=== PATIENT | female | born 1995 | race American Indian/Alaskan Native ===

== ENCOUNTER 2017-10-15 03:20 | Emergency (ER) | payer OTHER ==
[~2017-10-15] VITALS: Ht 165.1 cm; Wt 975.2 kg
[~2017-10-15 03:20] MED LIST: ALBU90OI INH; ALBU90OI6 INH; ALPR1 PO; ARTHRITIS PAIN650 MG PO; AZIT250 PO; BIRTH CONTROL; BUDE6HFA; BUSP10 PO; BUSP5 PO; Bactrim Ds Tab1 EACH PO; CEPH500 PO; CLON.5 PO; Clonazepam0.5 MG PO; IBUP600 PO; IBUP800 PO; Junel Fe 1.5-31 EACH PO; LEVO750 PO; LORA10ER PO; MAGIC MOUTHWASH; MONT10T PO; NAPR220 PO; Norco 10-325 T1 EACH PO; Norco 5-325 Ta1 EACH PO; PRED10 PO; PRED20 PO; PROCODE120 PO; Prednisone20 MG PO; SULTRIDS PO; TRAM50 PO; TRAZ50 PO; Ventolin5 MG/1 ML INH; Zithromax250 MG PO
[2017-10-15] MEDS ORDERED: PROP10 PO (03:34)
== END 2017-10-15 04:28 | disposition home or self-care (01) ==
LOC: ER 03:20
DX: F41.8 Other specified anxiety disorders (principal); J45.909 Unspecified asthma, uncomplicated; F32.9 Major depressive disorder, single episode, unspecified; Z79.899 Other long term (current) drug therapy; Z87.891 Personal history of nicotine dependence
CPT/HCPCS: 96374; 96375; 99283; J1200; J1630

== ENCOUNTER 2017-10-24 22:43 | Inpatient (IN) | payer OTHER ==
[~2017-10-24] VITALS: Ht 162.6 cm; Wt 135.7 kg
[~2017-10-24 22:43] MED LIST changes: +PROP10 PO
[2017-10-25 00:11] LABS: BASOPHILS ABSOLUTE AUTO 0.07 K/mm3 (0.00-0.23); BASOPHILS PERCENT AUTO 1 % (0-2); EOSINOPHILS ABSOLUTE AUTO 0.56 K/mm3 (0.00-0.68); EOSINOPHILS PERCENT AUTO 7 % (0-6); Hematocrit 43.1 % (33.0-51.0); Hemoglobin 13.8 g/dL (11.5-16.0); IMMATURE GRAN ABSOLUTE AUTO 0.02 K/mm3 (0.00-0.10); IMMATURE GRAN PERCENT AUTO 0 % (0-1); LYMPHOCYTES ABSOLUTE AUTO 2.64 K/mm3 (0.84-5.20); LYMPHOCYTES PERCENT AUTO 35 % (21-46); MONOCYTES ABSOLUTE AUTO 0.53 K/mm3 (0.16-1.47); MONOCYTES PERCENT AUTO 7 % (4-13); Mean Corpuscular HGB 29.9 pg (26.0-34.0); Mean Corpuscular Volume 93 fL (80-100); Mean Platelet Volume 10.7 fL (9.1-12.4); NEUTROPHILS ABSOLUTE AUTO 3.71 K/mm3 (1.96-9.15); NEUTROPHILS PERCENT AUTO 49 % (41-73); Platelet Count 310 K/mm3 (150-400); RDW Coefficient Variation 12.1 % (11.7-14.2); RDW Standard Deviation 41.8 fL (35.1-46.3); Red Blood Cell Count 4.62 M/mm3 (3.80-5.20); White Blood Cell Count 7.53 K/mm3 (4.00-11.30)
[2017-10-25 00:12] LABS: Source, Urine Clean Catch
[2017-10-25 00:19] LABS: Bilirubin, Urine Neg (Neg); Blood, Urine Neg (Neg); Glucose Qualitative, Urine Neg (Neg); Ketones, Urine Neg (Neg); Leukocyte Esterase, Urine Neg (Neg); Nitrite, Urine Neg (Neg); Protein, Urine Neg (Neg); Urobilinogen, Urine NORM (Normal)
[2017-10-25 00:25] LABS: Appearance, Urine Clear (Clear); Color, Urine Pale Yellow (P-Yellow)
[2017-10-25 00:31] LABS: U Amphetamine Screen Not Detected; U Barbituate Screen DETECTED; U Benzodiazapine Screen DETECTED; U Methamphetamine Screen Not Detected
[2017-10-25 00:32] LABS: Acetaminophen, Random 28.5 ug/mL (10.0-30.0); Alanine Aminotransfer (ALT/SGP 132 U/L (12-78); Albumin, Blood 3.6 g/dL (3.4-5.0); Alk Phos 71 U/L (50-136); Anion Gap 8 mmol/L (6-16); Aspartate Aminotrans (AST/SGOT 88 U/L (12-37); Bilirubin, Total 0.4 mg/dL (0.1-1.0); Blood Urea Nitrogen 9 mg/dL (8-24); Bun/Creatinine Ratio 13.1 (12.0-20.0); CO2, Blood 25 mmol/L (21-32); Calcium, Blood 8.3 mg/dL (8.5-10.1); Chloride, Blood 106 mmol/L (98-108); Creatinine, Blood 0.69 mg/dL (0.40-1.00); Ethanol (Alcohol), Blood, Med <3 mg/dL; Globulin, Blood 3.7 g/dL (2.2-4.0); Glomerular Filtration Rate >60 (60-); Glucose, Blood 97 mg/dL (70-99); Potassium, Blood 4.2 mmol/L (3.5-5.5); Salicylate <1.7 mg/dL (2.8-20.0); Sodium, Blood 139 mmol/L (136-145); Total Protein, Blood 7.3 g/dL (6.4-8.2)
[2017-10-25 00:32] LABS: U Buprenorphine Screen Not Detected; U Cannabinoids Screen DETECTED; U Cocaine Screen Not Detected; U Methadone Screen Not Detected; U Opiates Screen Not Detected; U Oxycodone Screen Not Detected; U Phencyclidine Screen Not Detected; U Propoxyphene Screen Not Detected
[2017-10-25 02:10] LABS: International Normalized Ratio 1.17; Prothrombin Time Results 12.2 Sec (9.7-11.5)
[2017-10-25] MEDS ORDERED: IBUP800 PO (03:28)
[2017-10-25 18:49] LABS: Alanine Aminotransfer (ALT/SGP 113 U/L (12-78); Albumin, Blood 3.3 g/dL (3.4-5.0); Alk Phos 60 U/L (50-136); Anion Gap 11 mmol/L (6-16); Aspartate Aminotrans (AST/SGOT 60 U/L (12-37); Bilirubin, Total 0.5 mg/dL (0.1-1.0); Blood Urea Nitrogen 7 mg/dL (8-24); Bun/Creatinine Ratio 11.7 (12.0-20.0); CO2, Blood 19 mmol/L (21-32); Calcium, Blood 8.4 mg/dL (8.5-10.1); Chloride, Blood 111 mmol/L (98-108); Globulin, Blood 3.4 g/dL (2.2-4.0); Glomerular Filtration Rate >60 (60-); Glucose, Blood 107 mg/dL (70-99); Potassium, Blood 4.3 mmol/L (3.5-5.5); Sodium, Blood 141 mmol/L (136-145); Total Protein, Blood 6.7 g/dL (6.4-8.2)
[2017-10-25 23:49] LABS: International Normalized Ratio 1.07; Prothrombin Time Results 11.1 Sec (9.7-11.5)
[2017-10-26 00:19] LABS: Alanine Aminotransfer (ALT/SGP 101 U/L (12-78); Aspartate Aminotrans (AST/SGOT 47 U/L (12-37)
[2017-10-26 00:20] LABS: Acetaminophen, Random <2.0 ug/mL (10.0-30.0)
[2017-10-26 09:21] LABS: Alanine Aminotransfer (ALT/SGP 106 U/L (12-78); Albumin/Globulin Ratio 0.9 (0.8-1.8); Alk Phos 58 U/L (50-136); Anion Gap 7 mmol/L (6-16); Aspartate Aminotrans (AST/SGOT 61 U/L (12-37); Bilirubin, Total 0.5 mg/dL (0.1-1.0); Blood Urea Nitrogen 8 mg/dL (8-24); Bun/Creatinine Ratio 12.4 (12.0-20.0); CO2, Blood 22 mmol/L (21-32); Calcium, Blood 7.9 mg/dL (8.5-10.1); Chloride, Blood 112 mmol/L (98-108); Creatinine, Blood 0.64 mg/dL (0.40-1.00); Globulin, Blood 3.3 g/dL (2.2-4.0); Glomerular Filtration Rate >60 (60-); Glucose, Blood 94 mg/dL (70-99); Potassium, Blood 4.1 mmol/L (3.5-5.5); Sodium, Blood 141 mmol/L (136-145); Total Protein, Blood 6.3 g/dL (6.4-8.2)
[2017-10-26] MEDS ORDERED: LORA1 PO (09:57)
== END 2017-10-26 10:41 | disposition home or self-care (01) | DRG 918 ==
LOC: ER 22:43 → ICUW 22:44
PROVIDERS: Emergency Medicine; Family Medicine; Internal Medicine
DX: T39.1X2A Poisoning by 4-Aminophenol derivatives, intentional self-harm, initial encounter (principal); I47.1 Supraventricular tachycardia; E66.9 Obesity, unspecified; F32.9 Major depressive disorder, single episode, unspecified; F41.9 Anxiety disorder, unspecified; J45.909 Unspecified asthma, uncomplicated; Z87.891 Personal history of nicotine dependence
CPT/HCPCS: 36415; 76705; 80053; 81003; 81025; 83735; 84436; 84443; 84450; 84460; 85025; 85610; 93005; 93010; 94640; 96365; 96375; 99291; 99292; G0480; J0132; J2405; J7030; J7060; J7070

== ENCOUNTER 2018-09-12 22:05 | Emergency (ER) | payer OTHER ==
[~2018-09-12] VITALS: Ht 162.6 cm; Wt 127.0 kg
[~2018-09-12 22:05] MED LIST changes: +LORA1 PO
[2018-09-12] MEDS ORDERED: PROP10 (22:17)
[2018-09-12] MEDS ORDERED: CLON1 PO (22:17)
== END 2018-09-12 23:49 | disposition home or self-care (01) ==
LOC: ER 22:05
DX: S90.212A Contusion of left great toe with damage to nail, initial encounter (principal); W22.8XXA Striking against or struck by other objects, initial encounter; Z88.6 Allergy status to analgesic agent; Z79.899 Other long term (current) drug therapy; F32.9 Major depressive disorder, single episode, unspecified; F43.10 Post-traumatic stress disorder, unspecified; J45.909 Unspecified asthma, uncomplicated; Z87.891 Personal history of nicotine dependence
CPT/HCPCS: 11740; 99283-25

== ENCOUNTER 2019-05-17 03:19 | Observation (INO) | payer OTHER ==
[~2019-05-17] VITALS: Ht 167.6 cm; Wt 124.7 kg
[~2019-05-17 03:19] MED LIST changes: +CLON1 PO; +Roxicodone5 MG PO
[2019-05-17 03:52] LABS: BASOPHILS ABSOLUTE AUTO 0.05 K/mm3 (0.00-0.23); BASOPHILS PERCENT AUTO 1 % (0-2); EOSINOPHILS ABSOLUTE AUTO 0.32 K/mm3 (0.00-0.68); EOSINOPHILS PERCENT AUTO 3 % (0-6); Hematocrit 42.8 % (33.0-51.0); Hemoglobin 13.7 g/dL (11.5-16.0); IMMATURE GRAN ABSOLUTE AUTO 0.05 K/mm3 (0.00-0.10); IMMATURE GRAN PERCENT AUTO 1 % (0-1); LYMPHOCYTES ABSOLUTE AUTO 2.13 K/mm3 (0.84-5.20); LYMPHOCYTES PERCENT AUTO 20 % (21-46); MONOCYTES ABSOLUTE AUTO 0.63 K/mm3 (0.16-1.47); MONOCYTES PERCENT AUTO 6 % (4-13); Mean Corpuscular HGB 30.1 pg (26.0-34.0); Mean Corpuscular Volume 94 fL (80-100); Mean Platelet Volume 10.6 fL (9.1-12.4); NEUTROPHILS ABSOLUTE AUTO 7.41 K/mm3 (1.96-9.15); NEUTROPHILS PERCENT AUTO 70 % (41-73); Platelet Count 356 K/mm3 (150-400); RDW Coefficient Variation 13.2 % (11.7-14.2); RDW Standard Deviation 45.1 fL (35.1-46.3); Red Blood Cell Count 4.55 M/mm3 (3.80-5.20); White Blood Cell Count 10.59 K/mm3 (4.00-11.30)
[2019-05-17 04:15] LABS: Alanine Aminotransfer (ALT/SGP 63 U/L (12-78); Albumin, Blood 3.8 g/dL (3.4-5.0); Albumin/Globulin Ratio 1.1 (0.8-1.8); Alk Phos 69 U/L (50-136); Anion Gap 8 mmol/L (6-16); Aspartate Aminotrans (AST/SGOT 35 U/L (12-37); Bilirubin, Total 0.2 mg/dL (0.1-1.0); Blood Urea Nitrogen 12 mg/dL (8-24); Bun/Creatinine Ratio 17.2 (12.0-20.0); CO2, Blood 24 mmol/L (21-32); Calcium, Blood 8.2 mg/dL (8.5-10.1); Chloride, Blood 110 mmol/L (98-108); Ethanol (Alcohol), Blood, Med 40 mg/dL; Globulin, Blood 3.5 g/dL (2.2-4.0); Glomerular Filtration Rate >60 (60-); Glucose, Blood 108 mg/dL (70-99); Potassium, Blood 4.2 mmol/L (3.5-5.5); Salicylate <1.7 mg/dL (2.8-20.0); Sodium, Blood 142 mmol/L (136-145); Total Protein, Blood 7.3 g/dL (6.4-8.2)
[2019-05-17 04:25] LABS: Acetaminophen, Random 112.6 ug/mL (10.0-30.0)
[2019-05-17] MEDS ORDERED: PROP10 (04:30)
[2019-05-17 06:53] LABS: Source, Urine Clean Catch
[2019-05-17 06:59] LABS: Bilirubin, Urine Neg (Neg); Blood, Urine Neg (Neg); Glucose Qualitative, Urine Neg (Neg); Ketones, Urine 1+ (Neg); Leukocyte Esterase, Urine Neg (Neg); Nitrite, Urine Neg (Neg); Protein, Urine Neg (Neg); Specific Gravity, Urine 1.015 (1.003-1.022); Urobilinogen, Urine NORM (Normal); pH, Urine 6.5 (5.0-8.0)
[2019-05-17 07:16] LABS: Appearance, Urine Clear (Clear); Color, Urine Yellow (P-Yellow)
[2019-05-17 07:22] LABS: U Amphetamine Screen Not Detected; U Barbituate Screen Not Detected; U Benzodiazapine Screen Not Detected; U Buprenorphine Screen Not Detected; U Cannabinoids Screen DETECTED; U Cocaine Screen Not Detected; U Methadone Screen Not Detected; U Methamphetamine Screen Not Detected; U Opiates Screen Not Detected; U Oxycodone Screen Not Detected; U Phencyclidine Screen Not Detected; U Propoxyphene Screen Not Detected
== END 2019-05-17 22:34 | disposition home or self-care (01) ==
LOC: ER 03:19 → EOR 03:20
PROVIDERS: Emergency Medicine; ADMIT Emergency Medicine
DX: T39.1X2A Poisoning by 4-Aminophenol derivatives, intentional self-harm, initial encounter (principal); F32.9 Major depressive disorder, single episode, unspecified; F41.9 Anxiety disorder, unspecified; F43.10 Post-traumatic stress disorder, unspecified; J45.909 Unspecified asthma, uncomplicated; Z88.6 Allergy status to analgesic agent; Z79.899 Other long term (current) drug therapy; Z79.51 Long term (current) use of inhaled steroids
CPT/HCPCS: 36415; 80053; 81003; 81025; 84443; 85025; 96374; 96376; 99285-25; G0378; G0480; J2405; Q3014

== ENCOUNTER 2019-06-20 03:39 | Emergency (ER) | payer OTHER ==
[~2019-06-20] VITALS: Ht 162.6 cm; Wt 122.5 kg
[~2019-06-20 03:39] MED LIST changes: +PROP10
[2019-06-20] MEDS ORDERED: Norco 5-325 Ta1 EACH PO (05:42)
[2019-06-20] MEDS ORDERED: Ventolin/Prove6.7 GM (14:58)
[2019-06-20] MEDS ORDERED: Zoloft100 MG PO ×2 (15:19)
[2019-06-20] MEDS ORDERED: Ativan1 MG PO ×2 (15:19)
[2019-06-20] MEDS ORDERED: Seroquel Xr50 MG PO ×2 (15:19)
[2019-06-20] MEDS ORDERED: Prozac20 MG PO ×2 (15:19)
[2019-06-20] MEDS ORDERED: Percocet 5-3251 EACH PO ×2 (15:19)
[2019-06-20] MEDS ORDERED: Neurontin 100100 MG PO ×2 (15:19)
== END 2019-06-20 06:23 | disposition home or self-care (01) ==
LOC: ER 03:39
DX: S01.511A Laceration without foreign body of lip, initial encounter (principal); S05.12XA Contusion of eyeball and orbital tissues, left eye, initial encounter; S50.812A Abrasion of left forearm, initial encounter; J45.909 Unspecified asthma, uncomplicated; Z88.8 Allergy status to other drugs, medicaments and biological substances; Z79.899 Other long term (current) drug therapy; Z87.891 Personal history of nicotine dependence; Y04.2XXA Assault by strike against or bumped into by another person, initial encounter
CPT/HCPCS: 70450; 70486; 72125; A9270; J3010

== ENCOUNTER 2019-06-20 14:17 | Emergency (ER) | payer OTHER ==
[~2019-06-20] VITALS: Ht 162.6 cm; Wt 122.5 kg
[2019-06-20] MEDS ORDERED: Ventolin/Prove6.7 GM (14:58)
[2019-06-20] MEDS ORDERED: Zoloft100 MG PO ×2 (15:19)
[2019-06-20] MEDS ORDERED: Seroquel Xr50 MG PO ×2 (15:19)
[2019-06-20] MEDS ORDERED: Neurontin 100100 MG PO ×2 (15:19)
[2019-06-20] MEDS ORDERED: Ativan1 MG PO ×2 (15:19)
[2019-06-20] MEDS ORDERED: Percocet 5-3251 EACH PO ×2 (15:19)
[2019-06-20] MEDS ORDERED: Prozac20 MG PO ×2 (15:19)
== END 2019-06-20 15:34 | disposition home or self-care (01) ==
LOC: ER 14:17
DX: S02.2XXA Fracture of nasal bones, initial encounter for closed fracture (principal); S01.511A Laceration without foreign body of lip, initial encounter; S00.83XA Contusion of other part of head, initial encounter; S05.12XA Contusion of eyeball and orbital tissues, left eye, initial encounter; Y04.8XXA Assault by other bodily force, initial encounter; Z88.6 Allergy status to analgesic agent; Z87.891 Personal history of nicotine dependence

== ENCOUNTER 2019-09-22 06:20 | Emergency (ER) | payer OTHER ==
[~2019-09-22] VITALS: Ht 165.1 cm; Wt 117.9 kg
[~2019-09-22 06:20] MED LIST changes: +Ativan1 MG PO; +Neurontin 100100 MG PO; +Percocet 5-3251 EACH PO; +Prozac20 MG PO; +Seroquel Xr50 MG PO; +Ventolin/Prove6.7 GM; +Zoloft100 MG PO
== END 2019-09-22 10:40 | disposition home or self-care (01) ==
LOC: ER 06:20
DX: S00.83XA Contusion of other part of head, initial encounter (principal); S20.01XA Contusion of right breast, initial encounter; S80.11XA Contusion of right lower leg, initial encounter; Y04.8XXA Assault by other bodily force, initial encounter; Z88.8 Allergy status to other drugs, medicaments and biological substances; F41.9 Anxiety disorder, unspecified; F32.9 Major depressive disorder, single episode, unspecified; J45.909 Unspecified asthma, uncomplicated; Z79.899 Other long term (current) drug therapy; Z87.891 Personal history of nicotine dependence; Z88.6 Allergy status to analgesic agent; F43.10 Post-traumatic stress disorder, unspecified
CPT/HCPCS: 70450; 81025; 99284-25